=== PATIENT | female | born 1955 | race Caucasian/White ===

== ENCOUNTER 2016-06-25 19:29 | Emergency (ER) | payer OTHER ==
[~2016-06-25] VITALS: Ht 175.3 cm; Wt 107.8 kg
[~2016-06-25 19:29] MED LIST: ALBUTEROL SULF8.5 GM IH; ALLERGY RELIEF10 M5 PO; ASPIR-LOW81 MG PO; B COMPLETE1 EACH PO; CALCIUM 600 +1 EAC1 PO; CALCIUM 600 +1 EAC4 PO; FLEXERIL10 MG PO; HYDROCHLOROTH12.5 M3 PO; IMITREX50 MG PO; KEFLEX500 MG PO; LEVAQUIN750 MG PO; NAPROSYN500 MG PO; NICOTINE PATCH1 EAC2 TD; PERCOCET 5/31 TABLET PO; PREDNISONE20 MG PO; PRILOSEC20 MG PO; PROPRANOLOL HC120 MG; PROPRANOLOL HC120 MG PO; VICODIN 5-3001 EACH PO; VITAMIN D400 UNI1 PO; ZOFRAN4 MG PO; ZOLOFT50 MG PO
[2016-06-25 20:34] LABS: HEMATOCRIT 43.4 % (36.0-46.0); MCH 30.1 PG (29.0-34.0); MCHC 34.6 G/DL (30.0-36.0); MCV 87.1 FL (83-99); MEAN PLAT.VOLUME 11.3 uM^3 (9.5-12.4); PLATELET COUNT 207 K/uL (156-360); RBC DIS.WIDTH-CV 13.1 % (11.8-14.6); RBC DIS.WIDTH-SD 40.7 % (39-53); RED BLOOD COUNT 4.98 M/uL (3.80-5.20); WHITE BLOOD COUNT 10.2 K/uL (4.1-10.2)
[2016-06-25 20:42] LABS: CHLORIDE 105 mEq/L (99-109); SODIUM 142 mEq/L (136-147)
[2016-06-25 20:44] LABS: GLUCOSE 98 mg/dL (70-99)
[2016-06-25 20:45] LABS: ANION GAP 9 MEQ/L (2-14)
[2016-06-25 20:46] LABS: TOTAL BILIRUBIN 0.5 mg/dL (0.0-1.0)
[2016-06-25 20:47] LABS: ALKALINE PHOSPHATASE 138 IU/L (3-129)
[2016-06-25 20:48] LABS: GFR ESTIMATE (CALCULATED) > 59 mL/min/
[2016-06-25 20:49] LABS: UREA NITROGEN (BUN) 24 mg/dL (9-23)
[2016-06-25 21:57] LABS: LIPASE 28 U/L (1.0-51.0)
[2016-06-25 22:50] LABS: ADD MIUA? YES; BILIRUBIN NEGATIVE; BLOOD NEGATIVE; COLOR YELLOW ((YELLOW)); GLUCOSE (STRIP) NEGATIVE; KETONES NEGATIVE; LEUKOCYTES NEGATIVE; NITRITE NEGATIVE; PROTEIN (STRIP) NEGATIVE; SPECIFIC GRAVITY 1.018 (1.000-1.030); UROBILINOGEN 0.2 MG/DL (0.2-1.0)
[2016-06-25 22:56] LABS: BACTERIA RARE /HPF; EPITHELIAL CELLS RARE /HPF; MUCUS TRACE /LPF; RED BLOOD CELLS 0-5 /HPF (0-5); UCUL ADDED? NO; WHITE BLOOD CELLS 0-5 /HPF (0-5)
[2016-06-26] MEDS ORDERED: BENTYL20 MG PO (01:39)
[2016-06-26 01:49] VITALS: BP 135/72
== END 2016-06-26 01:50 | disposition home or self-care (01) ==
LOC: EME 19:29 → RME 19:29
DX: R10.10 Upper abdominal pain, unspecified (principal)
CPT/HCPCS: 74177; 80053; 81003; 83690; 85027; 99281; 99284

== ENCOUNTER 2017-01-08 01:29 | Emergency (ER) | payer OTHER ==
[~2017-01-08 01:29] MED LIST changes: +BENTYL20 MG PO
[2017-01-08 03:47] LABS: ADD MIUA? NO; BILIRUBIN NEGATIVE; BLOOD NEGATIVE; COLOR YELLOW ((YELLOW)); GLUCOSE (STRIP) NEGATIVE; KETONES NEGATIVE; LEUKOCYTES NEGATIVE; NITRITE NEGATIVE; PROTEIN (STRIP) NEGATIVE; SPECIFIC GRAVITY 1.012 (1.000-1.030); UROBILINOGEN 0.2 MG/DL (0.2-1.0)
[2017-01-08 03:50] LABS: BASOPHIL COUNT 0.1 K/uL (0-0.1); EOSINOPHIL (%) 2.1 % (0-5); EOSINOPHIL COUNT 0.2 K/uL (0-0.3); HEMATOCRIT 42.6 % (36.0-46.0); IMMATURE GRANULOCYTE (%) 0.2 % (0.0-0.7); INSTRUMENT ABS NEUTROPHIL CT 3.8 K/uL; LYMPHOCYTE COUNT 4.7 K/uL (1.0-2.8); MCH 29.5 PG (29.0-34.0); MCV 86.6 FL (83-99); MEAN PLAT.VOLUME 11.6 uM^3 (9.5-12.4); MONOCYTE (%) 6.8 % (3-12); MONOCYTE COUNT 0.6 K/uL (0-0.8); NEUTROPHIL (%) 40.2 % (45-76); NEUTROPHIL COUNT 3.8 K/uL (1.8-6.4); PLATELET COUNT 205 K/uL (156-360); RBC DIS.WIDTH-CV 13.5 % (11.8-14.6); RBC DIS.WIDTH-SD 42.7 % (39-53); RED BLOOD COUNT 4.92 M/uL (3.80-5.20); WHITE BLOOD COUNT 9.5 K/uL (4.1-10.2)
[2017-01-08 03:53] LABS: CHLORIDE 107 mEq/L (99-109); POTASSIUM 3.6 mEq/L (3.7-5.4); SODIUM 141 mEq/L (136-147)
[2017-01-08 03:55] LABS: GLUCOSE 97 mg/dL (70-99)
[2017-01-08 03:56] LABS: ANION GAP 13 MEQ/L (2-14)
[2017-01-08 03:57] LABS: TOTAL BILIRUBIN 0.5 mg/dL (0.0-1.0)
[2017-01-08 03:58] LABS: ALKALINE PHOSPHATASE 136 IU/L (3-129)
[2017-01-08 03:59] LABS: GFR ESTIMATE (CALCULATED) > 59 mL/min/
[2017-01-08 04:00] LABS: UREA NITROGEN (BUN) 21 mg/dL (9-23)
[2017-01-08] MEDS ORDERED: ALDACTONE25 MG PO (05:33)
[2017-01-08 05:41] VITALS: BP 144/87
== END 2017-01-08 05:41 | disposition home or self-care (01) ==
LOC: EME 01:29
PROVIDERS: Emergency Medicine
DX: R19.7 Diarrhea, unspecified (principal); F17.200 Nicotine dependence, unspecified, uncomplicated; Z87.442 Personal history of urinary calculi; B19.20 Unspecified viral hepatitis C without hepatic coma; K74.60 Unspecified cirrhosis of liver; Z90.710 Acquired absence of both cervix and uterus
CPT/HCPCS: 80053; 81003; 85025; 99281; 99284